=== PATIENT | female | born 1985 | race Hispanic/Latino ===

== ENCOUNTER 2017-07-31 17:01 | Emergency (ER) | payer SELFPAY ==
[2017-07-31 17:33] LABS: #Basophils 0.1 thou/uL (0.0-0.2); #Eosinphils 0.1 thou/uL (0.0-0.7); #Lymphocytes 1.8 thou/uL (1.20-3.40); #Monocytes 0.8 thou/uL (0.11-0.59); #Neutrophils 5.9 thou/uL (1.40-6.50); %Basophils 0.6 % (0.0-1.0); %Lymphocytes 20.5 % (21.0-51.0); %Monocytes 9.7 % (0.0-10.0); Hematocrit 34.5 % (36.0-47.0); Mean Platelet Volume 9.7 fL (7.4-10.4); Red Blood Cell (RBC) Count 4.56 mill/uL (4.20-5.40); White Blood Cell (WBC) Count 8.6 thou/uL (4.8-10.8)
[2017-07-31 18:00] LABS: ALT (SGPT) 146 U/L (8-55); AST (SGOT) 106 U/L (5-34); Alkaline Phosphatase 193 U/L (40-150); Anion Gap 13 mmol/L (10-20); BUN (Urea Nitrogen) 14 mg/dL (7.0-18.7); Bilirubin, Total 0.4 mg/dL (0.2-1.2); Calc. Creatinine Clearance 0 mL/min (70-130); Carbon Dioxide 23 mmol/L (22-29); Chloride 102 mmol/L (98-107); Estimated GFR-MDRD 80; Globulin 4.3 g/dL (2.4-3.5); Lipase 44 U/L (8-78); Protein, Total 7.8 g/dL (6.0-8.3)
[2017-07-31 18:58] LABS: Bilirubin Negative (Negative); Blood, Urine Large (Negative); Glucose, Urine (Dipstick) >=1000 mg/dL (Negative); Ketone, Urine Negative (Negative); Nitrite Negative (Negative); Protein, Urine (Dipstick) Negative (Neg-Trace); Urobilinogen 0.2 mg/dL (0.2-1.0)
[2017-07-31 19:01] LABS: Bacteria/HPF None Seen HPF (None Seen); Hyaline Casts/LPF 0-3 HYALINE CAST LPF (0-3 Hyaline); RBC/HPF GREATER THAN 50-TNTC HPF (0-3); Squamous Epithelial 0-3 HPF (0-3)
[2017-07-31] MEDS ORDERED: Ketorolac Tromethamine 30 MG/ML VIAL ONE (20:08)
--- NOTE | 2017-07-31 20:35 | ULT ---
TRANSVAGINAL PEVLIC ULTRASOUN INCLUDING COLOR AND SPECTRAL DOPPLER IMAGING: History: 32-year-old female presents with right lower quadrant pain and pelvis pain with vaginal bleeding and concern for torsion. FINDINGS: The uterus measures 9.1 x 5.2 x 6.1 cm with a thickened endometrium at 1.4 cm. The right ovary vanita ures 2.3 x 3.3 x 3.7 cm and contains a small 1.4 cm follicle cyst. The left ovary measures 1.4 x 3.2 x 3.6 cm. Exam is limited by body habitus. No abscess or abnormal fluid collection. VASCULAR DUPLEX INCLUDING COLOR AND SPECTRAL DOPPLER IMAGING: Vascular flow to both ovaries. No evidence for ovarian torsion. IMPRESSION: Unremarkable pelvic ultrasound. POS: CHANDRIKA
[2017-07-31] MEDS ORDERED: cefTRIAXone\\ROCEPHIN 1 GM VIAL ONE (21:16)
[2017-07-31] MEDS ORDERED: Azithromycin 250 MG TAB ONE (21:16)
[2017-07-31] MEDS ORDERED: Lidocaine 1% PF 5 ML VIAL ONE (21:17)
== END 2017-07-31 21:53 | disposition home or self-care (01) ==
LOC: ERS 17:01
DX: R10.31 Right lower quadrant pain (principal); E11.9 Type 2 diabetes mellitus without complications; E03.9 Hypothyroidism, unspecified; F31.9 Bipolar disorder, unspecified; F41.9 Anxiety disorder, unspecified
CPT/HCPCS: 36415; 76856; 80053; 81003; 81015; 83690; 84703; 85025; 87480; 87491; 87510; 87591; 87660; 93976; 96372; 96374; J0696; J1885; J2001

== ENCOUNTER 2017-08-03 07:19 | Emergency (ER) | payer SELFPAY ==
[2017-08-03] MEDS ORDERED: valACYclovir HCl 1 GM TAB PO SCH (08:15)
[2017-08-03] MEDS ORDERED: Lidocaine 2% Jelly 5 ML TUBE TOP SCH (08:15)
[2017-08-03] MEDS ORDERED: Lidocaine 4% Cream 5 GM TUBE w/ Tegaderm ONE (08:37)
== END 2017-08-03 08:45 | disposition home or self-care (01) ==
LOC: ERS 07:19
DX: A60.00 Herpesviral infection of urogenital system, unspecified (principal); E11.9 Type 2 diabetes mellitus without complications; E03.9 Hypothyroidism, unspecified; F41.9 Anxiety disorder, unspecified; F31.9 Bipolar disorder, unspecified; Z79.84 Long term (current) use of oral hypoglycemic drugs; Z79.899 Other long term (current) drug therapy
CPT/HCPCS: 99283

== ENCOUNTER 2018-07-26 16:44 | Emergency (ER) | payer MEDICAID, SELFPAY ==
[2018-07-26 17:14] LABS: Pregnancy Test - Urine (BHCG) POSITIVE (Negative); Pregu Control Background? CLEAR/WHITE (CLR/WHITE); Pregu Control Bar Appear? YES (CONTROL BAR); Specific Gravity 1.036 (1.002-1.036)
[2018-07-26 17:24] LABS: #Eosinphils 0.1 thou/uL (0.0-0.7); #Lymphocytes 2.4 thou/uL (1.20-3.40); #Monocytes 0.6 thou/uL (0.11-0.59); #Neutrophils 6.3 thou/uL (1.40-6.50); %Basophils 0.5 % (0.0-1.0); %Eosinophils 0.9 % (0.0-10.0); %Lymphocytes 25.5 % (21.0-51.0); %Monocytes 6.7 % (0.0-10.0); %Neutrophils 66.5 % (42.0-75.0); Hemoglobin 12.2 g/dL (12.0-16.0); Mean Corpuscular HGB CONC 31.5 g/dL (32.0-36.0); Mean Corpuscular Hemoglobin 24.2 pg (27.0-31.0); Mean Platelet Volume 9.9 fL (7.4-10.4); Platelet Count 239 thou/uL (130-400); RBC Distribution Width 16.9 % (11.5-14.5); Red Blood Cell (RBC) Count 5.03 mill/uL (4.20-5.40); White Blood Cell (WBC) Count 9.5 thou/uL (4.8-10.8)
[2018-07-26 17:30] LABS: BHCG - Serum POSITIVE (NEGATIVE); Pregs Control Background? CLEAR/WHITE (CLR/WHITE); Pregs Control Bar Appear? YES (CONTROL BAR)
[2018-07-26 17:37] LABS: Bilirubin Negative (Negative); Blood, Urine Negative (Negative); Clarity CLEAR (Clear); Glucose, Urine (Dipstick) >=1000 mg/dL (Negative); Leukocyte Negative (Negative); Nitrite Negative (Negative); Protein, Urine (Dipstick) Negative (Neg-Trace); Specific Gravity, Urine 1.037 (1.002-1.036); Urobilinogen 0.2 mg/dL (0.2-1.0)
[2018-07-26 18:19] LABS: Anion Gap 10 mmol/L (10-20); BUN (Urea Nitrogen) 10 mg/dL (7.0-18.7); Calc. Creatinine Clearance 0 mL/min (70-130); Calcium 9.1 mg/dL (7.8-10.44); Carbon Dioxide 21 mmol/L (22-29); Chloride 103 mmol/L (98-107); Estimated GFR-MDRD 67; Glucose 409 mg/dL (70-105); Potassium 4.2 mmol/L (3.5-5.1); Sodium 130 mmol/L (136-145)
[2018-07-26] MEDS ORDERED: Insulin Regular 300 UNITS/3 ML VIAL ONE ×2 (18:56→19:03)
[2018-07-26] MEDS ORDERED: Nitroglycerin 0.4 MG TAB (25 Tab Bottle) ONE (18:58)
[2018-07-26] MEDS ORDERED: HumaLOG 300 UNITS/3 ML VIAL ONE (18:58)
--- NOTE | 2018-07-26 19:12 | ULT ---
PELVIC ULTRASOUND 07/26/18 HISTORY: Reported , first trimester bleeding/spotting for one day. FINDINGS: Multiple transabdominal and endovaginal sonographic images of the pelvis are obtained. The uterus measures 9.7 cm x 5.1 cm x 6.6 cm. There is a fluid collection seen in the endometrial can al with a ring-like echogenicity seen within fluid collection which may represent a gestational sac a lthough this is larger in size than expected for the size of the presumed gestational sac. However, f indings may be related to a very early intrauterine gestational age. No pole is seen at this ti me. Mean sac diameter is 1.29 cm which would correspond to gestational age of 6 weeks and 1 day. Feta l pole should be seen at this time. No cardiac activity was demonstrated. The ovaries demonstrate a normal sonographic appearance bilaterally with the right ovary measuring 2. 7 cm x 2.3 cm x 1.9 cm and the left ovary measuring 3.1 cm x 2.9 cm x 2.8 cm. Doppler evaluation of e ach ovary with spectral analysis and color flow evaluation demonstrates arterial flow in each ovary. No free fluid is seen in the cul-de-sac. IMPRESSION: Fluid collection in the endometrial canal which may be secondary to early intrauterine gestation. As noted above, there is ring-like echogenicity seen within the fluid collection which has the appearanc e of a yolk sac, but this is much larger in size with respect to the gestational sac than typically e xpected. These findings could be related to an early intrauterine gestational age. However, mean sac diameter corresponds to a gestational age of 6 weeks and 1 day, and pole should be visualized b y this time with cardiac activity noted. Short interval followup ultrasound examination is efrain mmended. Serial quantitative beta HCG levels should also be performed. POS: CHANDRIKA
== END 2018-07-26 20:00 | disposition home or self-care (01) ==
LOC: ERS 16:44
DX: O20.9 Hemorrhage in early pregnancy, unspecified (principal); O24.111 Pre-existing type 2 diabetes mellitus, in pregnancy, first trimester; E11.65 Type 2 diabetes mellitus with hyperglycemia; O99.341 Other mental disorders complicating pregnancy, first trimester; F31.9 Bipolar disorder, unspecified; F41.9 Anxiety disorder, unspecified; O99.281 Endocrine, nutritional and metabolic diseases complicating pregnancy, first trimester; E03.9 Hypothyroidism, unspecified; Z3A.01 Less than 8 weeks gestation of pregnancy; Z79.899 Other long term (current) drug therapy; Z79.84 Long term (current) use of oral hypoglycemic drugs
CPT/HCPCS: 36415; 36416; 76856; 80048; 81003; 81025; 84702; 84703; 85025; J1815